=== PATIENT | female | born 1995 | race Caucasian/White ===

== ENCOUNTER 2018-05-05 22:40 | Emergency (ER) | payer MEDICAID, OTHER ==
[~2018-05-05] VITALS: Ht 167.6 cm; Wt 62.3 kg
[2018-05-05 23:02] VITALS: BP 106/61
== END 2018-05-06 00:05 | disposition left against medical advice (07) ==
LOC: EMS 22:42
DX: J02.9 Acute pharyngitis, unspecified (principal); Z53.21 Procedure and treatment not carried out due to patient leaving prior to being seen by health care provider
CPT/HCPCS: 87430